=== PATIENT | female | born 1985 | race Caucasian/White ===

== ENCOUNTER 2021-04-16 20:14 | Emergency (ER) | payer BC ==
[2021-04-16] MEDS ORDERED: fentaNYL 100 MCG/2 ML SDV IM ONE (20:58)
[2021-04-16] MEDS ORDERED: Cyclobenzaprine 10 MG Tab PO ONE (21:12)
[2021-04-16] MEDS ORDERED: Cyclobenzaprine 10 MG Tab ONE (21:14)
--- NOTE | 2021-04-16 21:55 | EDM.PDOC ---
ED HPI GENERAL MEDICAL PROBLEM - General Chief Complaint: Lower Extremity Injury/Pain Stated Complaint: UPPER R LEG INJURY Time Seen by Provider: 04/16/21 20:54 Source of Information: Reports: Patient, Family, RN Notes Reviewed History Limitations: Reports: No Limitations - History of Present Illness INITIAL COMMENTS - FREE TEXT/NARRATIVE: 35-year-old female presents emergency department day complaint of pain in the back of her right leg, she injured herself while waterskiing pain is been so intense she is unable to ambulate. - Related Data Allergies Allergy/AdvReac Type Severity Reaction Status Date / Time No Known Allergies Allergy Verified 04/16/21 20:46 Home Meds: Home Meds Amphetamine/Dextroamphetamine [Adderall XR] 1 tab PO DAILY 04/16/21 [History] FLUoxetine HCl [Prozac] 1 tab PO DAILY 04/16/21 [History] Past Medical History - Past Health History Medical/Surgical History: Denies Medical/Surgical History Social & Family History - Tobacco Use Tobacco Use Status *Q: Never Tobacco User Review of Systems - Review of Systems Review Of Systems: See Below Musculoskeletal: Reports: Muscle Pain ED EXAM, GENERAL - Physical Exam Exam: See Below Free Text/Narrative:: Examination of the hamstring on the right side she is unable to fully extend her leg secondary to pain I do not appreciate any bruising there is no hematoma there is no sulcus sign she is point tender to the middle of the thigh below the gluteal cleft pedal pulses +2 Exam Limited By: No Limitations General Appearance: Alert, Mild Distress Course - Vital Signs Last Recorded V/S: Last Vital Signs Temp 98.1 F 04/16/21 20:52 Pulse 89 04/16/21 20:52 Resp 12 04/16/21 20:52 BP 124/65 04/16/21 20:52 Pulse Ox 100 04/16/21 20:52 - Orders/Labs/Meds Meds: Medications Discontinued Medications Generic Name Dose Route Start Last Admin Trade Name Yoan PRN Reason Stop Dose Admin Cyclobenzaprine HCl 10 mg 04/16/21 21:12 04/16/21 21:18 Cyclobenzaprine 10 Mg Tab PO 04/16/21 21:13 10 mg ONETIME ONE Administration Cyclobenzaprine HCl Confirm 04/16/21 21:14 Cyclobenzaprine 10 Mg Tab Administered 04/16/21 21:15 Dose 10 mg .ROUTE .STK-MED ONE Fentanyl 50 mcg 04/16/21 20:58 04/16/21 21:18 Fentanyl 100 Mcg/2 Ml Sdv IM 04/16/21 20:59 50 mcg ONETIME ONE Administration Departure - Departure Time of Disposition: 21:54 Disposition: Home, Self-Care 01 Condition: Fair Clinical Impression: Hamstring tear - Discharge Information Instructions: Hamstring Strain, Hamstring Strain Rehab-SportsMed Referrals: MAYRA SCANLON MD [Other] Additional Instructions: Use ibuprofen for baseline pain control, use Percocet for breakthrough pain, please follow-up with your primary care upon return home call or return to the emergency department worsening of symptoms Sepsis Event Note (ED) - Evaluation Sepsis Screening Result: No Definite Risk - Focused Exam Vital Signs: Vital Signs Temp Pulse Resp BP Pulse Ox 04/16/21 20:52 98.1 F 89 12 124/65 100 04/16/21 20:34 98.1 F 89 12 124/65 100 - Assessment/Plan Plan: Assessment Acuity = acute Site and laterality = partial hamstring tear Etiology = sports injury Manifestations = none Location of injury = Home Lab values = none Plan She is placed in a compression wrap provided Percocet 5/325 1 tab p.o. 3 times daily as needed total #10 she will use this for breakthrough pain ibuprofen for baseline pain follow-up with primary care upon return home This note was dictated using [employer] voice recognition software please call with any questions on syntax or grammar.
== END 2021-04-16 22:22 | disposition home or self-care (01) ==
LOC: JP.ED 20:14
DX: S71.111A Laceration without foreign body, right thigh, initial encounter (principal); W26.8XXA Contact with other sharp object(s), not elsewhere classified, initial encounter; Y93.17 Activity, water skiing and wake boarding
CPT/HCPCS: 96372; 99283; A9270; J3010